=== PATIENT | male | born 1980 ===

== ENCOUNTER 2024-05-13 18:04 | Emergency (ER) | payer OTHER ==
[2024-05-13] MEDS: MORPHINE SULFATE 4 MG/ML SYRINGE IVP ONE ×2 (19:16→20:55)
[2024-05-13] MEDS: ONDANSETRON HCL 4 MG/2 ML VIAL IVP ONE (19:16)
[2024-05-13 19:48] LABS: BASOPHILS % (AUTO) 0.3 % (0.0-2.0); EOSINOPHILS % (AUTO) 0.2 % (1.0-6.0); HEMATOCRIT 42.9 % (41-53); HEMOGLOBIN 14.3 g/dL (13.5-17.5); LYMPHOCYTES # (AUTO) 2.2 K/uL (1.0-4.8); LYMPHOCYTES % (AUTO) 16.7 % (22.0-44.0); MEAN CORPUSCULAR HEMOGLOBIN 30.7 pg (26.0-34.0); MEAN CORPUSCULAR HGB CONC 33.4 G/dL (31.0-37.0); MEAN CORPUSCULAR VOLUME 92 fL (80-100); MONOCYTES # (AUTO) 0.9 K/uL (0.1-1.0); MONOCYTES % (AUTO) 6.5 % (2.0-9.0); NEUTROPHILS % (AUTO) 76.3 % (40.0-70.0); PLATELET COUNT (AUTO) 134 K/uL (150-450); RED BLOOD CELL COUNT(AUTO) 4.66 MIL/uL (4.50-5.90); RED CELL DISTRIBUTION WIDTH 14.1 % (11.5-14.5); WHITE BLOOD COUNT (AUTO) 13.1 K/uL (4.5-11.0)
[2024-05-13 19:58] LABS: ANION GAP 7 mmol/L (8-16); CALCIUM, TOTAL 8.5 mg/dL (8.8-10.5); CARBON DIOXIDE 29 mmol/L (22-29); CHLORIDE 106 mmol/L (98-107); CREATININE 1.05 mg/dL (0.60-1.30); GLOMERULAR FILTR. RATE CALC > 60 mL/min (>60); GLUCOSE,RANDOM 97 mg/dL (70-110); POTASSIUM 3.6 mmol/L (3.5-5.1); SODIUM SERUM 141 mmol/L (136-145); UREA NITROGEN, BLOOD 11 mg/dL (7-18)
[2024-05-13 20:06] LABS: ALCOHOL, BLOOD (SERUM) < 3 mg/dL (0-10)
[2024-05-13 20:21] LABS: CREATINE KINASE, TOTAL ONLY 261 U/L (39-308)
[2024-05-13] MEDS: BACITRACIN 0.9 GM PACKET OINTMENT TP ONE (20:43)
[2024-05-13] MEDS: LIDOCAINE 1% 10 ML VIAL SQ ONE (20:44)
[2024-05-13] MEDS: HYDROCODONE/ACETAMINOPHEN 5-325 MG TABLET PO ONE (21:49)
[2024-05-13 21:52] VITALS: BP 145/60; PULSE 99; RESP 16; O2SAT 100
== END 2024-05-13 22:17 ==
LOC: EMS 18:04
DX: S82.155A Nondisplaced fracture of left tibial tuberosity, initial encounter for closed fracture (principal); S06.0XAA Concussion with loss of consciousness status unknown, initial encounter; S01.111A Laceration without foreign body of right eyelid and periocular area, initial encounter; S80.01XA Contusion of right knee, initial encounter; F11.20 Opioid dependence, uncomplicated; Z98.890 Other specified postprocedural states; Y04.8XXA Assault by other bodily force, initial encounter; Y93.89 Activity, other specified; Y92.89 Other specified places as the place of occurrence of the external cause; Y99.8 Other external cause status
CPT/HCPCS: 99285; 70450; 96374; 71045; 96375; 80048; 82550; 85025; 36415; 72170; 73562; 70486; 72125; 74176; 12015; 96376; G0480; J2270; J2405; J3490; 12002; 12014